=== PATIENT | female | born 1995 | race Caucasian/White ===

== ENCOUNTER 2018-11-22 15:20 | Emergency (ER) | payer SELFPAY ==
--- NOTE | 2018-11-22 16:42 | ERPHSYRPT ---
- History of Present Illness Time Seen by Provider: 11/22/18 16:32 Historian: patient Exam Limitations: no limitations Patient Subjective Stated Complaint: pt here for menst. cramping. she states she started her period early and is worried about getting STD or being . She used no protection Triage Nursing Assessment: pt alert, resp easy, skin w/d/p, abd soft, and nontender Physician History: The patient is a 23-year-old female the friend complaining that she started a light menstrual cycle only after 3 weeks from her last menstrual cycle that ended 10/27/18. She had unprotected sex 2-1/2 weeks ago. She took a home test 4 days after the unprotected sex was negative. She states there was ejaculation inside of her during the unprotected sex. Her menstrual cycle is usually heavy with strong cramping but now it is been very minimal. She was lightheaded this morning. She wants to find out if she is . Timing/Duration: day(s) (5), gradual onset, improved Activities at Onset: none Quality: cramping (mild) Abdominal Pain Onset Location: suprapubic Pain Radiation: no radiation Severity of Pain-Max: mild Severity of Pain-Current: none Associated Symptoms: denies symptoms Previous symptoms: no prior history Allergies/Adverse Reactions: No Known Drug Allergies Allergy (Unverified 11/22/18 15:44) Home Medications: No Reportable Medications [No Reported Medications] 11/22/18 [History] Hx Influenza Vaccination/Date Given: No Hx Pneumococcal Vaccination/Date Given: No Immunizations Up to Date: Yes - Review of Systems Constitutional: No Fever, No Chills Eyes: No Symptoms Ears, Nose, & Throat: No Symptoms Respiratory: No Cough, No Dyspnea Cardiac: No Chest Pain, No Edema, No Syncope Abdominal/Gastrointestinal: Abdominal Pain (cramping) Genitourinary Symptoms: Vaginal Bleeding (very mild) Musculoskeletal: No Back Pain, No Neck Pain Skin: No Rash Neurological: No Dizziness, No Focal Weakness, No Sensory Changes Psychological: No Symptoms Endocrine: No Symptoms Hematologic/Lymphatic: No Symptoms Immunological/Allergic: No Symptoms All Other Systems: Reviewed and Negative - Past Medical History Pertinent Past Medical History: No - Past Surgical History Past Surgical History: Yes Other Surgical History: surgery to neck - Social History Smoking Status: Current every day smoker Exposure to second hand smoke: Yes Drug Use: none Patient Lives Alone: No - Female History Hx Last Menstrual Period: now Hx Now: No (unsure) - Nursing Vital Signs Nursing Vital Signs: Initial Vital Signs Temperature 97.8 F 11/22/18 15:40 Pulse Rate 77 11/22/18 15:40 Respiratory Rate 16 11/22/18 15:40 Blood Pressure 126/92 11/22/18 15:40 O2 Sat by Pulse Oximetry 100 11/22/18 15:40 Pain Scale Pain Intensity 4 - Physical Exam General Appearance: no apparent distress, alert Eye Exam: PERRL/EOMI, eyes nml inspection Ears, Nose, Throat Exam: normal ENT inspection, pharynx normal, moist mucous membranes Neck Exam: normal inspection, non-tender, supple, full range of motion Respiratory Exam: normal breath sounds, lungs clear, No respiratory distress Cardiovascular Exam: regular rate/rhythm, normal heart sounds Gastrointestinal/Abdomen Exam: soft, No tenderness, No mass Pelvic Exam: not done Rectal Exam: not done Back Exam: normal inspection, normal range of motion, No CVA tenderness, No vertebral tenderness Extremity Exam: normal inspection, normal range of motion, pelvis stable Neurologic Exam: alert, oriented x 3, cooperative, normal mood/affect, nml cerebellar function, sensation nml, No motor deficits Skin Exam: normal color, warm, dry SpO2 Interpretation: normal SpO2: 100 Oxygen Delivery: Room Air Ordered Tests: Active Orders 24 hr Category Date Time Status CULTURE,URINE Stat Lab 11/22/18 16:51 Received HCG,QUALITATIVE URINE Stat Lab 11/22/18 16:51 Completed UA W/RFX UR CULTURE Stat Lab 11/22/18 16:51 Completed Lab/Rad Data: Laboratory Results 11/22/18 11/22/18 11/22/18 Range/Units Unknown 16:51 16:51 Urine Color YELLOW (YELLOW) Urine Appearance CLOUDY (CLEAR) Urine pH 7.0 (5-6) Ur Specific [place] 1.019 (1.005-1.025) Urine Protein 30 (Negative) Urine Ketones NEGATIVE (NEGATIVE) Urine Blood LARGE (0-5) Husam/ul Urine Nitrite NEGATIVE (NEGATIVE) Urine Bilirubin NEGATIVE (NEGATIVE) Urine Urobilinogen 2 (0-1) mg/dL Ur Leukocyte Esterase NEGATIVE (NEGATIVE) Urine WBC (Auto) 3-5 (0-5) /HPF Urine RBC (Auto) 3-5 (0-2) /HPF U Epithel Cells (Auto) RARE (FEW) /HPF Urine Bacteria (Auto) FEW (NEGATIVE) /HPF Amorphous Crystals MANY (NEGATIVE) /HPF Urine Mucus (Auto) SLIGHT (NEGATIVE) /HPF Urine Culture Reflexed YES (NO) Urine Glucose NEGATIVE (NEGATIVE) mg/dL Urine HCG, Qual NEGATIVE (Negative) Ur Chlamydia DNA Probe NEGATIVE Urine GC DNA Probe NEGATIVE - Progress Progress: unchanged Counseled pt/family regarding: lab results, diagnosis - Departure Time of Disposition: 18:45 Departure Disposition: Home Clinical Impression: Menorrhagia with irregular cycle Condition: Stable Critical Care Time: No Referrals: DOCTOR,NO FAMILY [Primary Care Provider] - Additional Instructions: You have an irregular menstrual cycle. You are not . The urinalysis is normal. The testing for STD was negative. Follow-up with your primary medical doctor for further evaluation if desired.
[2018-11-22 17:16] LABS: Appearance CLOUDY (CLEAR); Bilirubin NEGATIVE (NEGATIVE); Blood LARGE Ery/ul (0-5); Glucose NEGATIVE (NEGATIVE); Ketones NEGATIVE (NEGATIVE); Leukocyte Esterase NEGATIVE (NEGATIVE); Nitrite NEGATIVE (NEGATIVE); Protein,Urine Dip 30 (Negative); Specific Gravity 1.019 (1.005-1.025); Urobilinogen 2 mg/dL (0-1)
[2018-11-22 18:56] VITALS: BP 107/71; PULSE 64; O2SAT 95
== END 2018-11-22 18:56 | disposition home or self-care (01) ==
LOC: ED 15:20
DX: N92.6 Irregular menstruation, unspecified (principal)
CPT/HCPCS: 81001; 84703; 87086; 87491; 87591; 99283

== ENCOUNTER 2019-04-24 10:42 | Emergency (ER) | payer MEDICAID ==
[2019-04-24 11:04] VITALS: O2SAT 100
[2019-04-24] MEDS ORDERED: Sodium Chloride 0.9% 1000 ML 1,000 ML IV STA (11:16)
--- NOTE | 2019-04-24 11:22 | ERPHSYRPT ---
- History of Present Illness Time Seen by Provider: 04/24/19 11:20 Source: patient Exam Limitations: no limitations Patient Subjective Stated Complaint: Pt c/o of having a heavy menstrual period for the past 3 periods and soaking a pad in approx 1/2 hour this morning, had sex with a girl that had chlamydia and was treated for it about 2 months ago but she feels that might be what she has Triage Nursing Assessment: Pt walks into the ER with c/o of heavy vaginal bleeding, has concerns of having chlamydia, has been having periors lasting approx 2 weeks, vitals wnl, reports that she has been feeling dizzy and nauseous Physician History: Pt c/o of having a heavy menstrual period for the past 3 periods and soaking a pad in approximately 1/2 hour this morning, had sex with a girl that had chlamydia and was treated for it about 2 months ago. Patient denies any fever, chills, abdominal pain nausea, vomiting Timing/Duration: week(s) Activites at Onset: none Pain Radiation: none Sexual intercourse history: multiple partners Modifying Factors: Improves With: nothing Allergies/Adverse Reactions: No Known Drug Allergies Allergy (Verified 04/24/19 11:04) Hx Influenza Vaccination/Date Given: No Hx Pneumococcal Vaccination/Date Given: No - Review of Systems Constitutional: No Symptoms Eyes: No Symptoms Ears, Nose, & Throat: No Symptoms Respiratory: No Symptoms Cardiac: No Symptoms Abdominal/Gastrointestinal: No Symptoms Genitourinary Symptoms: Vaginal Bleeding Musculoskeletal: No Symptoms - Past Medical History Pertinent Past Medical History: No - Past Surgical History Past Surgical History: Yes Other Surgical History: surgery on neck due to cat scratch fever - Social History Smoking Status: Current every day smoker How long have you smoked: 11 years Exposure to second hand smoke: Yes Drug Use: none Patient Lives Alone: No - Female History Hx Last Menstrual Period: 04/23/2019 Hx Now: No - Nursing Vital Signs Nursing Vital Signs: Initial Vital Signs Temperature 98.3 F 04/24/19 10:51 Pulse Rate 81 04/24/19 10:51 Blood Pressure 100/62 04/24/19 10:51 O2 Sat by Pulse Oximetry 100 04/24/19 10:51 Pain Scale Pain Intensity 0 - Physical Exam General Appearance: no apparent distress Eye Exam: PERRL/EOMI Ears, Nose, Throat Exam: normal ENT inspection Neck Exam: normal inspection Respiratory Exam: normal breath sounds Cardiovascular Exam: regular rate/rhythm Gastrointestinal/Abdomen Exam: soft Pelvic Exam: not done Rectal Exam: deferred Back Exam: normal inspection Extremity Exam: normal inspection Neurologic Exam: alert, oriented x 3, cooperative SpO2: 100 Ordered Tests: Active Orders 24 hr Category Date Time Status CBC W DIFF Stat Lab 04/24/19 12:11 Completed CMP Stat Lab 04/24/19 12:11 Received CULTURE,URINE Stat Lab 04/24/19 11:35 Received HCG QUALITATIVE,SERUM Stat Lab 04/24/19 12:11 Completed UA W/RFX UR CULTURE Stat Lab 04/24/19 11:35 Completed Medication Summary Generic Name Dose Route Start Last Admin Trade Name Freq PRN Reason Stop Dose Admin Ceftriaxone Sodium/Dextrose 1 g in 50 mls @ 100 mls/hr 04/24/19 12:16 12:19 Rocephin 1 Gm-D5w 50 Ml Bag IV 04/24/19 12:45 100 ml/hr STAT STA 100 mls/hr Administration Discontinued Medications Generic Name Dose Route Start Last Admin Trade Name Freq PRN Reason Stop Dose Admin Ceftriaxone Sodium 1,000 mg 04/24/19 12:07 04/24/19 12:20 Rocephin 1000 Mg Inj IM 04/24/19 12:08 Not Given STAT ONE Sodium Chloride 1,000 mls @ 999 mls/hr 04/24/19 11:16 04/24/19 11:53 Sodium Chloride 0.9% 1000 Ml IV 04/24/19 12:16 999 mls/hr .[id number] STA Administration Sodium Chloride Confirm 04/24/19 11:50 Sodium Chloride 0.9% 1000 Ml Administered 04/24/19 11:51 Dose 1,000 mls @ ud .ROUTE .STK-MED ONE Ceftriaxone Sodium/Dextrose Confirm 04/24/19 12:15 Rocephin 1 Gm-D5w 50 Ml Bag Administered 04/24/19 12:16 Dose 1 g in 50 mls @ ud IV .STK-MED ONE Lab/Rad Data: Laboratory Result Diagrams 04/24/19 12:11 Laboratory Results 04/24/19 04/24/19 04/24/19 Range/Units 12:11 12:11 11:35 WBC 5.0 (4.0-10.5) K/mm3 RBC 4.12 (4.1-5.4) M/mm3 Hgb 12.6 (12.0-16.0) gm/dl Hct 38.0 (35-47) % MCV 92.2 (78-100) fl MCH 30.6 (26-32) pg MCHC 33.2 (32-36) g/dl RDW 11.7 (11.5-14.0) % Plt Count 223 (150-450) K/mm3 MPV 10.6 H (6-9.5) fl Gran % 64.7 (36.0-66.0) % Eos # (Auto) 0.14 (0-0.5) Absolute Lymphs (auto) 1.16 (1.0-4.6) Absolute Monos (auto) 0.46 (0.0-1.3) Lymphocytes % 23.1 L (24.0-44.0) % Monocytes % 9.2 (0.0-12.0) % Eosinophils % 2.8 (0.00-5.0) % Basophils % 0.2 (0.0-0.4) % Absolute Granulocytes 3.25 (1.4-6.9) Basophils # 0.01 (0-0.4) Serum , Qual NEGATIVE (Negative) Urine Color YELLOW (YELLOW) Urine Appearance SLIGHTLY CLOUDY (CLEAR) Urine pH 5.0 (5-6) Ur Specific [place] 1.028 (1.005-1.025) Urine Protein 100 (Negative) Urine Ketones NEGATIVE (NEGATIVE) Urine Blood LARGE (0-5) Husam/ul Urine Nitrite NEGATIVE (NEGATIVE) Urine Bilirubin NEGATIVE (NEGATIVE) Urine Urobilinogen NEGATIVE (0-1) mg/dL Ur Leukocyte Esterase NEGATIVE (NEGATIVE) Urine WBC (Auto) 16-25 (0-5) /HPF Urine RBC (Auto) >101 (0-2) /HPF U Epithel Cells (Auto) RARE (FEW) /HPF Urine Bacteria (Auto) FEW (NEGATIVE) /HPF Urine Mucus (Auto) SLIGHT (NEGATIVE) /HPF Urine Culture Reflexed YES (NO) Urine Glucose NEGATIVE (NEGATIVE) mg/dL - Progress Progress: improved Blood Culture(s) Obtained: No Antibiotics given: Yes Counseled pt/family regarding: lab results, diagnosis, need for follow-up - Departure Departure Disposition: Home Clinical Impression: Menorrhagia with irregular cycle, UTI (urinary tract infection), uncomplicated Condition: Stable Critical Care Time: No Referrals: DOCTOR,NO FAMILY [Primary Care Provider] - SHAUN BRADY [ACTIVE STAFF] - Instructions: Heavy Periods (DC) Additional Instructions: Discharge/Care Plan JIM CORNEJO was seen on 04/24/19 in the Emergency Room. The patient was counseled regarding Diagnosis,Lab results, Imaging studies, need for follow up and when to return to the Emergency Room. Prescriptions given: Discharge Note I have spoken with the patient and/or caregivers. I have explained the patient' s condition, diagnosis and treatment plan based on the information available to me at this time. I have answered the patient's and/or caregiver's questions and addressed any concerns. The patient and/or caregivers have as good understanding of the patient's diagnosis, condition and treatment plan as can be expected at this point. The vital signs have been stable. The patient's condition is stable and appropriate for discharge from the emergency department. The patient will pursue further outpatient evaluation with the primary care physician or other designated or consulting physician as outlined in the discharge instructions. The patient and/or caregivers are agreeable to this plan of care and follow-up instructions have been explained in detail. The patient and/or caregivers have received these instruction. The patient/and or caregivers are aware that any significant change in condition or worsening of symptoms should prompt an immediate return to this or the closest emergency department or call 911. Prescriptions: Ciprofloxacin [Cipro 500 MG] 500 mg PO BIDAC #15 tablet
[2019-04-24] MEDS ORDERED: Sodium Chloride 0.9% 1000 ML 1,000 ML ONE (11:50)
[2019-04-24 11:55] LABS: Appearance SLIGHTLY CLOUDY (CLEAR); Bacteria FEW /HPF (NEGATIVE); Bilirubin NEGATIVE (NEGATIVE); Blood LARGE Ery/ul (0-5); Epithelial Cells RARE /HPF (FEW); Glucose NEGATIVE (NEGATIVE); Ketones NEGATIVE (NEGATIVE); Leukocyte Esterase NEGATIVE (NEGATIVE); Mucus SLIGHT /HPF (NEGATIVE); Nitrite NEGATIVE (NEGATIVE); Protein,Urine Dip 100 (Negative); Specific Gravity 1.028 (1.005-1.025); Urobilinogen NEGATIVE mg/dL (0-1)
[2019-04-24 11:56] LABS: RBC >101 /HPF (0-2)
[2019-04-24] MEDS ORDERED: Rocephin 1000 MG INJ IM ONE (12:07)
[2019-04-24] MEDS ORDERED: ROCEPHIN 1 Gm-D5w 50 ml Bag** 1 G/50 ML IVPB IV ONE (12:15)
[2019-04-24 12:16] LABS: BASOPHIL % 0.2 % (0.0-0.4); Basophil (Absolute #) 0.01 (0-0.4); Eosinophil % 2.8 % (0.00-5.0); Eosinophil (Absolute #) 0.14 (0-0.5); Granulocyte Absolute (ANC) 3.25 (1.4-6.9); Granulocytes % 64.7 % (36.0-66.0); Hemoglobin 12.6 gm/dl (12.0-16.0); Lymphocyte (Absolute #) 1.16 (1.0-4.6); Lymphocytes % 23.1 % (24.0-44.0); Mean Cell Volume 92.2 fl (78-100); Mean Corpuscular Hemoglobin 30.6 pg (26-32); Mean Corpuscular Hgb Concent. 33.2 g/dl (32-36); Mean Platelet Volume 10.6 fl (6-9.5); Monocyte (Absolute #) 0.46 (0.0-1.3); Monocytes % 9.2 % (0.0-12.0); Platelet Count 223 K/mm3 (150-450); Red Blood Count 4.12 M/mm3 (4.1-5.4); Red Cell Distribution Width 11.7 % (11.5-14.0)
[2019-04-24] MEDS ORDERED: ROCEPHIN 1 Gm-D5w 50 ml Bag** 1 G/50 ML IVPB IV STA (12:16)
[2019-04-24 12:26] LABS: ALBUMIN 4.2 g/dL (3.5-5.0); ALKALINE PHOSPHATASE 54 U/L (38-126); ANION GAP 12.5 MEQ/L (5-15); BLOOD UREA NITROGEN 13 mg/dL (7-17); CHLORIDE 107 mmol/L (98-107); Calcium 9.4 mg/dL (8.4-10.2); Carbon Dioxide 26 mmol/L (22-30); Glucose 81 mg/dL (74-106); SGOT/AST 18 U/L (14-36); SGPT/ALT 16 U/L (0-35); SODIUM 142 mmol/L (137-145)
[2019-04-24 13:20] VITALS: BP 108/71; PULSE 78
== END 2019-04-24 13:11 | disposition home or self-care (01) ==
LOC: ED 10:42
DX: N92.4 Excessive bleeding in the premenopausal period (principal); N39.0 Urinary tract infection, site not specified
CPT/HCPCS: 36415; 80053; 81001; 81025; 85025; 87086; 96360; 96365; 99284; J0696